=== PATIENT | female | born 1980 | race Caucasian/White ===

== ENCOUNTER 2024-01-22 18:59 | Emergency (ER) | payer SELFPAY ==
[2024-01-22] MEDS ORDERED: Ondansetron 4 MG Tab.DIS PO ONE (19:00)
[2024-01-22] MEDS ORDERED: Penicillin G Benzathine 1,200,000 Units/2 ML Syringe IM ONE (19:58)
[2024-01-22] MEDS: Penicillin V Potassium 250 MG Tab PO ONE (20:37)
== END 2024-01-22 21:04 | disposition home or self-care (01) ==
LOC: FB.ED 18:59
DX: U07.1 COVID-19 (principal); J45.41 Moderate persistent asthma with (acute) exacerbation; J02.0 Streptococcal pharyngitis; F17.200 Nicotine dependence, unspecified, uncomplicated
CPT/HCPCS: 87651-QW; 99284; A9270-GY; Q0162; U0002